=== PATIENT | female | born 1985 | race Caucasian/White ===

== ENCOUNTER → 2016-11-30 | Outpatient (CLI) | payer OTHER | LOC: WI 13:32 | PROVIDERS: ATTEND Nurse Practitioner Family | DX: N64.4 Mastodynia (principal) | CPT/HCPCS: 76641 ==

== ENCOUNTER → 2018-01-10 | Outpatient (CLI) | payer OTHER ==
--- NOTE | 2018-01-10 18:01 | RADIOLOGY REPORT (SQ) ---
EXAM DESCRIPTION: WRIST RIGHT 3 VIEWS COMPLETED DATE/TIME: 01/10/2018 5:35 pm REASON FOR STUDY: Unspecified injury of face, initial encounter; Anesthesia of skin COMPARISON: None. NUMBER OF VIEWS: Three views. TECHNIQUE: AP, lateral, and oblique radiographic images acquired of the right wrist. LIMITATIONS: None. FINDINGS: MINERALIZATION: Normal. BONES: No acute fracture or dislocation. No worrisome bone lesions. Normal alignment. SOFT TISSUES: No soft tissue swelling. No foreign body. OTHER: No other significant finding. IMPRESSION: NEGATIVE STUDY OF THE RIGHT WRIST. NO RADIOGRAPHIC EVIDENCE OF ACUTE INJURY. TECHNICAL DOCUMENTATION: JOB ID: [id number] [employer]- All Rights Reserved Reading location - IP/workstation name: [email or web address]
--- NOTE | 2018-01-10 18:05 | RADIOLOGY REPORT (SQ) ---
EXAM DESCRIPTION: MANDIBLE 4 VIEWS OR MORE COMPLETED DATE/TIME: 01/10/2018 5:35 pm REASON FOR STUDY: Unspecified injury of face, initial encounter; Anesthesia of skin COMPARISON: None. NUMBER OF VIEWS: Four view. TECHNIQUE: Images of the mandible acquired. AP, Tika's, angled right, angled left mandible images. LIMITATIONS: None. FINDINGS: MANDIBLE: No acute fracture. No disruption of the right or left temporomandibular joints. ORBITS: No fracture. No foreign body. SINUSES: No mucosal thickening. No air fluid levels. FACIAL BONES: No fracture. OTHER: No other significant finding. IMPRESSION: NO ACUTE FRACTURE OR MALALIGNMENT. TECHNICAL DOCUMENTATION: JOB ID: [id number] [employer]- All Rights Reserved Reading location - IP/workstation name: [email or web address]
== END ==
LOC: OD 17:04
PROVIDERS: ATTEND Nurse Practitioner Family
DX: S09.93XA Unspecified injury of face, initial encounter (principal); X58.XXXA Exposure to other specified factors, initial encounter; R20.0 Anesthesia of skin; Y93.9 Activity, unspecified; Y92.9 Unspecified place or not applicable
CPT/HCPCS: 70110

== ENCOUNTER 2018-07-02 10:30 | Day surgery (SDC) | payer OTHER ==
[2018-07-02] MEDS ORDERED: PROPOFOL INJ 200 MG/20 ML VIAL IV ONE (13:29)
[2018-07-02] MEDS ORDERED: ONDANSETRON HCL INJ/PF 4 MG/2 ML SDV IV PRN (14:13)
[2018-07-02] MEDS ORDERED: DIPHENHYDRAMINE HCL 50 MG/ML VIAL IV PRN (14:13)
--- NOTE | 2018-07-02 14:34 | Operative Report ---
Operative Report DATE OF SURGERY: 07/02/18 Operative Report: The risks, benefits and alternatives of the procedure including the risk of bleeding, perforation requiring surgery are explained to the patient in detail and informed consent is obtained. Patient was brought back to the operating room and placed in the left, lateral decubital position. Timeout was called. Propofol medications administered. A rectal examination is done which did not reveal any masses, tears or fissures. An Olympus endoscope was introduced into the patient's rectum. The scope was then carefully advanced all the way to the cecum. Intubation of the terminal ileum is done. Prep is good. The scope was then sequentially pulled back via the rest segments of the colon including the ascending colon, hepatic flexure, transverse colon, splenic flexure, descending colon and finally an into the rectosigmoid portions of the colon. Retroflexion maneuver was performed. PREOPERATIVE DIAGNOSIS: Rectal bleeding POSTOPERATIVE DIAGNOSIS: Internal hemorrhoids. Mild terminal ileitis status post biopsy rule out Crohn's disease OPERATION: EGD with biopsy SURGEON: BEN DARBY ANESTHESIA: LMAC TISSUE REMOVED OR ALTERED: As noted above. COMPLICATIONS: None. ESTIMATED BLOOD LOSS: None. INTRAOPERATIVE FINDINGS: As noted above. PROCEDURE: Patient tolerated the procedure well. No immediate postprocedure complications are noted. Patient discharged in good condition. Discharge date 07/02/2018. Discharge diet: Regular. Discharge activity: Regular. 2-3-week follow-up to discuss findings. Patient is instructed to call the office or proceed to the emergency room should there be any further problems or questions. Wait on pathology.
[2018-07-02 15:01] VITALS: BP 91/60
== END 2018-07-02 15:05 | disposition home or self-care (01) ==
LOC: OROUT 10:30
PROVIDERS: ATTEND Internal Medicine Gastroenterology
DX: K52.9 Noninfective gastroenteritis and colitis, unspecified (principal); K64.8 Other hemorrhoids; K62.5 Hemorrhage of anus and rectum; Z79.899 Other long term (current) drug therapy
CPT/HCPCS: 45380; 36415; 84703; 88305 ×2; J2704; 811

== ENCOUNTER → 2018-09-10 | Outpatient (CLI) | payer OTHER ==
--- NOTE | 2018-09-10 12:58 | RADIOLOGY REPORT (SQ) ---
EXAM DESCRIPTION: NM HIDA SCAN WITH CCK COMPLETED DATE/TIME: 09/10/2018 12:24 pm REASON FOR STUDY: RUQ PAIN R10.11 RIGHT UPPER QUADRANT PAIN COMPARISON: None. RADIONUCLIDE AND DOSE: DOSAGE RADIONUCLIDE: 5.34 millicuries Tc99m Mebrofenin. DOSAGE CCK: 1.6 micrograms. DOSAGE MORPHINE: Not required. The route of agent administration: Intravenous TECHNIQUE: Serial imaging right upper quadrant up to 60 minutes following injection of radionuclide. CCK injected after gallbladder visualized. LIMITATIONS: None. FINDINGS: LIVER: Normal visualization without areas of photopenia. INTRAHEPATIC BILE DUCTS: Normal size and no delay in visualization. COMMON BILE DUCT: Normal without dilatation. GALLBLADDER: Normal visualization. Calculated ejection fraction of 13%. Normal range is greater th an 35%. PHYSICAL RESPONSE: Patients presenting complaint was not reproduced. OTHER: No other significant finding. IMPRESSION: No evidence of cystic or common duct obstruction. Diminished gallbladder ejection fraction of 13% suggestive of biliary dyskinesia. TECHNICAL DOCUMENTATION: JOB ID: [id number] [employer]- All Rights Reserved Reading location - IP/workstation name: [email or web address]
== END ==
LOC: RAD 07:47
PROVIDERS: ATTEND Nurse Practitioner Family
DX: R10.11 Right upper quadrant pain (principal)
CPT/HCPCS: 78227; J2805; A9537; Q9969

== ENCOUNTER 2018-11-05 09:21 | Emergency (ER) | payer OTHER ==
--- NOTE | 2018-11-05 09:43 | ER Document Report ---
HPI - HPI Time Seen by Provider: 11/05/18 09:43 Pain Level: 4 Notes: 33-year-old female presents to the ED for complaints of left wrist pain after she was using a drill yesterday at work and her arm got wrapped around it, she states she has had pain with moving her wrist since yesterday. Has not tried any [id number] medications. No open wounds or lacerations. worse with time, elevation does make slightly better. Has not tried any icing or heat. Reports as a child she did break her left ulnar bone but she is not sure exactly where. Patient has an IUD and has a bilateral tubal ligation, [place], states no chance of . Pain is 4 out of 10, throbbing achy. Denies any other area of injury. Denies fevers, chills, chest pain,palpitations, shortness of breath, dyspnea, weakness, bowel or bladder dysfunction, saddle anesthesia, numbness or tingling in bilateral upper or lower extremities equally, muscle paralysis, weakness in bilateral upper or lower extremities equally or rash - REPRODUCTIVE Reproductive: DENIES: : Past Medical History - General Information source: Patient - Social History Smoking Status: Never Smoker Family History: Reviewed & Not Pertinent - Past Medical History Cardiac Medical History: Denies: Hx Coronary Artery Disease, Hx Heart Attack, Hx Hypertension Pulmonary Medical History: Denies: Hx Asthma, Hx Bronchitis, Hx COPD, Hx Pneumonia Neurological Medical History: Denies: Hx Cerebrovascular Accident, Hx Seizures Renal/ Medical History: Denies: Hx Kidney Stones GI Medical History: Denies: Hx Hepatitis, Hx Hiatal Hernia, Hx Ulcer Musculoskeletal Medical History: Denies Hx Arthritis Infectious Medical History: Denies: Hx Hepatitis Past Surgical History: Reports: Hx Section. Denies: Hx Hysterectomy, Hx Mastectomy, Hx Open Heart Surgery, Hx Pacemaker - Immunizations Hx Diphtheria, Pertussis, Tetanus Vaccination: Yes Vertical Provider Document - CONSTITUTIONAL Agree With Documented VS: Yes General Appearance: WD/WN Notes: PHYSICAL EXAMINATION: GENERAL: Well-appearing, well-nourished and in no acute distress. HEAD: Atraumatic, normocephalic. EYES: Pupils equal round and reactive to light, extraocular movements intact, conjunctiva are normal. ENT: Nares patent, oropharynx clear without exudates. Moist mucous membranes. NECK: Normal range of motion, supple without lymphadenopathy LUNGS: Breath sounds clear to auscultation bilaterally and equal. No wheezes rales or rhonchi. HEART: Regular rate and rhythm without murmurs ABDOMEN: Soft, nontender, nondistended abdomen. No guarding, no rebound. No masses appreciated. Female : deferred Musculoskeletal: Normal range of motion, no pitting or edema. No cyanosis. Noted left wrist pain with flexion, extension, inversion, eversion of wrist. digits in right and left with full aprom.. Wooden Box Maker + 2 BUE equally. Snuffbox ten derness positive on left. radial pulses + 2 BUE equally. Negative kanavels sign. No open wounds or drainage from wrist. No vascular compromise.No body crepitus or focal area of TTP. normal ulnar/radial deviation bilaterally and equally . Motor and sensory function of ulnar, radial, medial nerves intact bilaterally and equally. NEUROLOGICAL: Cranial nerves grossly intact. Normal speech, normal gait. Normal sensory, motor exams PSYCH: Normal mood, normal affect. SKIN: Warm, Dry, normal turgor, no rashes or lesions noted. 22-like and then on the other half of a flight - INFECTION CONTROL TRAVEL OUTSIDE OF THE [place] IN LAST 30 DAYS: No Course - Re-evaluation Re-evalutation: 11/05/18 09:51 33-year-old female afebrile vitals stable no distress presents for evaluation of left wrist pain after her hand got twisted in a device yesterday while she was practicing for the [employer] left wrist xray negative for acute fracture dislocation. Advised to follow rice therapy. Wear cockup splint as directed. Consent by patient given to place cock up splint,. cms intact, sensory motor function intact in bilateral upper extremities prior to splint application fiberglass splint placed without incident. cms intact 20 minutes after splint application. Splint is in good alignment. Bilateral upper extremities with motor and sensory function intact 20 minutes after application. Pt stated that splint felt comfortable. Alternate between Tylenol and ibuprofen for pain control. Elevate above level of heart. Follow-up with credit balance specialist within 24-48 hours. If needed follow-up with PCP within 24-48 hours. After performing a Medical Screening Examination, I estimate there is LOW risk for OPEN FRACTURE, COMPARTMENT SYNDROME, DEEP VENOUS THROMBOSIS, ACUTE TENDON RUPTURE, or NEUROVASCULAR INJURY thus I consider the discharge disposition reasonable. I have reevaluated this patient multiple times and no significant life threatening changes are noted. The patient and I have discussed the diagnosis and risks, and we agree with discharging home to closely follow-up with their primary doctor or the referral orthopedist with the understanding that symptoms and presentations can change. We also discussed returning to the Emergency Department immediately if new or worsening symptoms occur. We have discussed the symptoms which are most concerning (e.g., changing or worsening pain, numbness, weakness) that necessitate immediate return 11/05/18 10:54 - Vital Signs Vital signs: Temp Pulse Resp BP Pulse Ox 98.1 F 59 L 16 107/55 L 100 11/05/18 09:33 11/05/18 09:33 11/05/18 09:33 11/05/18 09:33 11/05/18 09:33 Discharge - Discharge Clinical Impression: Left wrist sprain Qualifiers: Encounter type: initial encounter Qualified Code(s): S63.502A - Unspecified sprain of left wrist, initial encounter Condition: Stable Disposition: HOME, SELF-CARE Instructions: Ice & Elevation ([facility]), Ice Packs ([facility]), Wrist Sprain ([facility]) Additional Instructions: SPRAIN: Your injury is a sprain. A sprain results from stretching or tearing of the ligaments, usually from a twisting injury. The ligaments will require time and protection in order to heal properly. Many sprains are quite disabling and should be taken seriously. The usual initial treatment of sprains is cold packs, elevation, and rest of the injured area. Your physician has assessed the seriousness of your lig ament injury, and has outlined a treatment plan. Understand that this treatment may change, depending on how you progress. If a re-examination was recommended, it is important that you follow up as instructed. Call the doctor any time if there is severe pain, numbness, or loss of function in the injured area. QUINCY WRAP: A compression dressing (quincy wrap) has been placed. This helps hold the area still. It limits swelling and internal bleeding. The wrap should be comfortably snug -- not tight. You should feel a sense of pressure, but not severe pain under the wrap. Unless the physician tells you otherwise, you can adjust the wrap for comfort. If the wrap causes symptoms suggesting it's too tight -- uncomfortable pressure, swelling or discoloration beyond the wrap, numbness, or severe pain -- you must loosen the wrap. If these symptoms don't resolve promptly, return for re-evaluation. SPLINT PRECAUTIONS: A splint has been placed. This will protect the area while healing begins. Your problem does NOT normally require a cast. It MUST, however, be held still! Keep the splint on ALL THE TIME until instructed to remove it by the doctor. As you begin to use the area, be careful. You shouldn't do anything which causes discomfort -- you may disturb the injury even with the splint in place. After the initial period of rest and elevation, if splint does not prevent pain when you move, come back. You may require placement of a different splint, or a cast. If there is unexpected severe pain, or numbness, discoloration, or swelling beyond the splint, you should return at once. If you feel that the splint has broken or become loose, come back. ICE & ELEVATION: Apply ice packs frequently against the painful area. Many different schedules are recommended, such as "20 minutes on, 20 minutes off" or "one hour ice, two hours rest." If you need to work, you may need to go longer between ice treatments. You should plan to have the area ice packed AT LEAST one-fourth of the time. The ice should be applied over the wrap, tape, or splint, or over a layer of cloth -- not directly against the skin. Some ice bags have a built-in cloth and can be put directly on the skin. Your injured part should be elevated as much as possible over the next 48 hours. Try to keep the injury above the level of the heart. Avoid use of the injured area. Elevation and rest will decrease the swelling. USE OF AHCC-UKH-BRCKRUA IBUPROFEN: Ibuprofen (Advil, Nuprin, Medipren, Motrin IB) is a medication for fever and pain control. In addition, it has anti- inflammatory effects which may be beneficial, especially in the treatment of injuries. It's best to take ibuprofen with food. Persons with ulcer disease or allergy to aspirin should notify their physician of this before taking ibuprofen. Ibuprofen can be given every four to six hours, for a total of four doses daily. Age Pain or fever dose Antiinflammatory dose 6-8 yr 200 mg (1 tab) 200 mg (1 tab) 9-11 yr 200 mg (1 tab) 200-400 mg (1-2 tab) 11-14 yr 200-400 mg (1-2 tab) 400 mg (2 tab) 15-adult 400 mg (2 tab) 600 mg (3 tab) FOLLOW-UP CARE: If you have been referred to a physician for follow-up care, call the physicians office for an appointment as you were instructed or within the next two days. If you experience worsening or a significant change in your symptoms, notify the physician immediately or return to the Emergency Department at any time for re-evaluation. Prescriptions: Ibuprofen [Ibu] 800 mg PO Q6HP PRN #20 tablet PRN Reason: Forms: Return to Work Referrals: TAMIE BATISTA DO [ACTIVE STAFF] - Follow up in 3-5 days TRISTIAN FRENCH NP [Primary Care Provider] - Follow up in 3-5 days
--- NOTE | 2018-11-05 10:36 | RADIOLOGY REPORT (SQ) ---
EXAM DESCRIPTION: WRIST LEFT 3 VIEWS COMPLETED DATE/TIME: 11/05/2018 10:20 am REASON FOR STUDY: twisted x 1 day ago, hx of L wrist fx as a child COMPARISON: None. NUMBER OF VIEWS: Three views. TECHNIQUE: AP, lateral, and oblique radiographic images acquired of the left wrist. LIMITATIONS: None. FINDINGS: MINERALIZATION: Normal. BONES: No acute fracture or dislocation. No worrisome bone lesions. Normal alignment. SOFT TISSUES: No soft tissue swelling. No foreign body. OTHER: No other significant finding. IMPRESSION: NEGATIVE STUDY OF THE LEFT WRIST. NO RADIOGRAPHIC EVIDENCE OF ACUTE INJURY. TECHNICAL DOCUMENTATION: JOB ID: [id number] [employer]- All Rights Reserved Reading location - IP/workstation name: [email or web address]
[2018-11-05 10:54] VITALS: BP 106/63
== END 2018-11-05 10:52 | disposition home or self-care (01) ==
LOC: ER 09:21
DX: S63.502A Unspecified sprain of left wrist, initial encounter (principal); M25.532 Pain in left wrist; X58.XXXA Exposure to other specified factors, initial encounter; Y99.0 Civilian activity done for income or pay
CPT/HCPCS: 99283; 73110; L3908

== ENCOUNTER 2019-01-28 08:36 | Emergency (ER) | payer OTHER ==
[2019-01-28] MEDS ORDERED: DIPHENHYDRAMINE HCL 50 MG/ML VIAL IV ONE (09:27)
[2019-01-28] MEDS ORDERED: PROCHLORPERAZINE EDISYLATE INJ 10 MG/2 ML VIAL IV ONE (09:27)
--- NOTE | 2019-01-28 09:31 | ER Document Report ---
ED Medical Screen (RME) - General Chief Complaint: Dizziness Stated Complaint: HEADACHE Time Seen by Provider: 01/28/19 09:22 Primary Care Provider: TRISTIAN FRENCH NP [Primary Care Provider] - Follow up as needed TRAVEL OUTSIDE OF THE [place] IN LAST 30 DAYS: No - HPI Notes: 01/28/19 09:28 Patient is a 33-year-old female with a history of anxiety/depression and migraines who presents complaining of bitemporal and frontal headache that is new for her with associated dizziness on occasion. Patient states his headache is been going on for the past week and is described as a sharp pain that has been progressive throughout the days. Patient states that she feels like the pain is on the inside of her head and she cannot reproduce it. Patient states that she is never had any imaging of her head in the past. This is not the worst QIU of her life and does not reach maximal intensity immediately. She is still able to eat and drink without difficultly. She is urinating normally. Denies any fever, head injury, neck pain, changes in vision/speech/mentation/hearing, URI, sore throat, chest pain, palpitations, syncope, cough, shortness of breath, wheeze, dyspnea, abdominal pain, nausea/vomiting/diarrhea, urinary retention, dysuria, hematuria, loss of control of bowel or bladder, numbness/tingling, saddle anesthesia, muscle paralysis/weakness, or rash. I have treated and performed a rapid initial assessment of this patient. A comprehensive ED assessment and evaluation of the patient, analysis of test results and completion of medical decision making process will be conducted by additional ED providers. PHYSICAL EXAMINATION: GENERAL: Well-appearing, well-nourished and in no acute distress. A&Ox4. Answers questions appropriately. HEAD: Atraumatic, normocephalic. Non-tender. EYES: Pupils equal round and reactive to light, extraocular movements intact, sclera anicteric, conjunctiva are normal. No nystagmus. vis kelley intact. ENT: Nares patent and without discharge. oropharynx clear without exudates. No tonsilar hypertrophy or erythema. Moist mucous membranes. NECK: Normal range of motion, supple without lymphadenopathy. No rigidity/meningismus. No midline tenderness. LUNGS: Breath sounds clear to auscultation bilaterally and equal. No wheezes rales or rhonchi. HEART: Regular rate and rhythm without murmurs, rubs, gallops. Musculoskeletal: Ext's b/l: FROM to passive/active. Strength 5+/5. No deficits noted. No bony tenderness of extremities. Extremities: No cyanosis, clubbing, or edema b/l. Peripheral pulses 2+. Capillary refill less than 2 seconds. NEUROLOGICAL: NIH 0. GCS 15. Cranial nerves grossly intact. Normal speech, normal gait. Normal sensory, motor exams. Reflexes 2+ b/l. MANNY's negative. Pronator drift negative. Heel/mitchell, finger/nose wnl. Romberg neg. PSYCH: Normal mood, normal affect. SKIN: Warm, Dry, normal turgor, no rashes or lesions noted. - Related Data Allergies/Adverse Reactions: No Known Allergies Allergy (Verified 01/28/19 08:44) Past Medical History - Social History Chew tobacco use (# tins/day): No Frequency of alcohol use: Occasional Drug Abuse: None - Past Medical History Cardiac Medical History: Denies: Hx Coronary Artery Disease, Hx Heart Attack, Hx Hypertension Pulmonary Medical History: Denies: Hx Asthma, Hx Bronchitis, Hx COPD, Hx Pneumonia Neurological Medical History: Denies: Hx Cerebrovascular Accident, Hx Seizures Renal/ Medical History: Denies: Hx Kidney Stones, Hx Peritoneal Dialysis GI Medical History: Denies: Hx Hepatitis, Hx Hiatal Hernia, Hx Ulcer Musculoskeltal Medical History: Denies Hx Arthritis Psychiatric Medical History: Reports: Hx Depression Infectious Medical History: Denies: Hx Hepatitis Past Surgical History: Reports: Hx Section, Hx Cholecystectomy. Denies: Hx Hysterectomy, Hx Mastectomy, Hx Open Heart Surgery, Hx Pacemaker - Immunizations Hx Diphtheria, Pertussis, Tetanus Vaccination: Yes Physical Exam - Vital signs Vitals: Temp Pulse Resp BP Pulse Ox 98.0 F 50 L 16 115/57 L 99 01/28/19 08:49 01/28/19 08:49 01/28/19 08:49 01/28/19 08:49 01/28/19 08:49 Course - Vital Signs Vital signs: Temp Pulse Resp BP Pulse Ox 98.0 F 50 L 16 115/57 L 99 01/28/19 08:49 01/28/19 08:49 01/28/19 08:49 01/28/19 08:49 06/18/19 08:49 Doctor's Discharge - Discharge Referrals: TRISTIAN FRENCH [employer] MANAGEMENT BIOLOGIST [Primary Care Provider] - Follow up as needed
[2019-01-28 09:56] LABS: ABSOLUTE BASOPHILS # (AUTO) 0.1 10^3/uL (0.0-0.2); ABSOLUTE EOSINOPHILS # (AUTO) 0.2 10^3/uL (0.0-0.6); ABSOLUTE LYMPHOCYTES (AUTO) 1.7 10^3/uL (0.5-4.7); ABSOLUTE MONOCYTES (AUTO) 0.6 10^3/uL (0.1-1.4); EOSINOPHILS % (AUTO) 4.2 % (0-6); HEMATOCRIT 42.5 % (36.0-47.0); HEMOGLOBIN 14.9 g/dL (12.0-15.5); LYMPHOCYTES % (AUTO) 30.4 % (13-45); MEAN CORPUSCULAR HEMOGLOBIN 33.6 pg (27.0-33.4); MEAN CORPUSCULAR HGB CONC 34.9 g/dL (32.0-36.0); MEAN CORPUSCULAR VOLUME 96 fl (80-97); MONOCYTES % (AUTO) 10.6 % (3-13); PLATELET COUNT 210 10^3/uL (150-450); RED BLOOD COUNT 4.42 10^6/uL (3.72-5.28); RED CELL DISTRIBUTION WIDTH 12.7 % (11.5-14.0); SEGMENTED NEUTROPHILS % (AUTO) 53.8 % (42-78); TOTAL CELLS COUNTED % (AUTO) 100 %; WHITE BLOOD COUNT 5.7 10^3/uL (4.0-10.5)
--- NOTE | 2019-01-28 10:12 | RADIOLOGY REPORT (SQ) ---
EXAM DESCRIPTION: CT HEAD WITHOUT COMPLETED DATE/TIME: 01/28/2019 9:56 am REASON FOR STUDY: headache COMPARISON: None. TECHNIQUE: Axial images acquired through the brain without intravenous contrast. Images reviewed wi th bone, brain and subdural windows. Additional sagittal and coronal reconstructions were generated. Images stored on PACS. All CT scanners at this facility use dose modulation, iterative reconstruction, and/or weight based d osing when appropriate to reduce radiation dose to as low as reasonably achievable (ALARA). [facility]: Dose Right [facility]: CareDose [facility]: Dose Right [facility]: Teradose 4D [facility]: Léa et Léo RADIATION DOSE: CT Rad equipment meets quality standard of care and radiation dose reduction techniq ues were employed. CTDIvol: 53.2 mGy. DLP: 1097 mGy-cm. mGy. LIMITATIONS: Artifact from jewelry. FINDINGS: VENTRICLES: Normal size and contour. CEREBRUM: No masses. No hemorrhage. No midline shift. No evidence for acute infarction. Normal gra y/white matter differentiation. No areas of low density in the white matter. CEREBELLUM: No masses. No hemorrhage. No alteration of density. No evidence for acute infarction. EXTRAAXIAL SPACES: No fluid collections. No masses. ORBITS AND GLOBE: No intra- or extraconal masses. Normal contour of globe without masses. CALVARIUM: No fracture. PARANASAL SINUSES: Mild mucosal thickening left maxillary sinus. SOFT TISSUES: No mass or hematoma. OTHER: No other significant finding. IMPRESSION: NORMAL BRAIN CT WITHOUT CONTRAST. EVIDENCE OF ACUTE STROKE: NO. COMMENT: Quality ID # [id number]: Final reports with documentation of one or more dose reduction techniques (e.g., Automated exposure control, adjustment of the mA and/or kV according to patient size, use of iterative reconstruction technique) TECHNICAL DOCUMENTATION: JOB ID: [id number] [employer]- All Rights Reserved Reading location - IP/workstation name: [email or web address]
[2019-01-28 10:14] LABS: ALANINE AMINOTRANSFERASE 20 U/L (9-52); ALBUMIN 4.2 g/dL (3.5-5.0); ALKALINE PHOSPHATASE 45 U/L (38-126); ANION GAP 6 (5-19); ASPARTATE AMINO TRANSFERASE 18 U/L (14-36); BILIRUBIN,DIRECT 0.2 mg/dL (0.0-0.4); BILIRUBIN,TOTAL 1.1 mg/dL (0.2-1.3); BLOOD UREA NITROGEN 14 mg/dL (7-20); CALCIUM 9.4 mg/dL (8.4-10.2); CARBON DIOXIDE 24 mmol/L (22-30); CHLORIDE 109 mmol/L (98-107); GLUCOSE 90 mg/dL (75-110); POTASSIUM 4.5 mmol/L (3.6-5.0); SODIUM 139.1 mmol/L (137-145); TOTAL PROTEIN 6.7 g/dL (6.3-8.2)
--- NOTE | 2019-01-28 11:04 | ER Document Report ---
ED General - General Chief Complaint: Dizziness Stated Complaint: HEADACHE Time Seen by Provider: 01/28/19 09:22 Primary Care Provider: TRISTIAN FRENCH NP [Primary Care Provider] - Follow up in 3-5 days Notes: Patient is a 33 year old female that presents to the emergency department for chief complaint of headache. Patient reports having a headache over the past week she describes as a spasm in the top of her head with associated photophobia and phonophobia. She tried taking [id number] Tylenol without much i mprovement. She denies having any blurred vision, changes in her vision, numbness, weakness or tingling. Denies any fevers, neck stiffness or pain, chest pain, shortness of breath, difficulty breathing. She states she has been stressed out more recently, and mildly anxious. Denies any head injury. She currently states her headache is improved after receiving Compazine and Benadryl, and has a rating of her headache as a 0-10 at this time, at its worst it was a 5 out of 10. Past Medical History: Denies chronic medical conditions Past Surgical History: Cholecystectomy, Social History: Admits to rare alcohol use, denies tobacco or illicit drug use. Family History: Reviewed and noncontributory for presenting illness Allergies: Reviewed, see documented allergy list. REVIEW OF SYSTEMS: Other than noted above, the 12 point review of systems was reviewed with the patient and were negative, all pertinent findings are included in the HPI. PHYSICAL EXAMINATION: Vital signs reviewed, nursing noted reviewed. GENERAL: Well-appearing, well-nourished and in no acute distress. HEAD: Atraumatic, normocephalic. EYES: Eyes appear normal, extraocular movements intact, sclera anicteric, conjunctiva are normal. ENT: nares patent, oropharynx clear without exudates. Moist mucous membranes. No sinus tenderness NECK: Normal range of motion, supple without lymphadenopathy signs of meningismus LUNGS: Breath sounds clear to auscultation bilaterally and equal. No wheezes rales or rhonchi. HEART: Regular rate and rhythm without murmurs ABDOMEN: Soft, nontender, normoactive bowel sounds. No rebound, guarding, or rigidity. No masses appreciated. EXTREMITIES: Nontender, good range of motion, no pitting or edema. NEUROLOGICAL: No focal neurological deficits. Moves all extremities spontaneously Motor and sensory grossly intact on exam. PSYCH: Normal mood, normal affect. SKIN: Warm, Dry, normal turgor, no rashes or lesions noted on exposed skin TRAVEL OUTSIDE OF THE [place] IN LAST 30 DAYS: No - Related Data Allergies/Adverse Reactions: No Known Allergies Allergy (Verified 01/28/19 08:44) Past Medical History - Social History Smoking Status: Never Smoker Chew tobacco use (# tins/day): No Frequency of alcohol use: Occasional Drug Abuse: None Family History: Reviewed & Not Pertinent Patient has suicidal ideation: No Patient has homicidal ideation: No - Past Medical History Cardiac Medical History: Denies: Hx Coronary Artery Disease, Hx Heart Attack, Hx Hypertension Pulmonary Medical History: Denies: Hx Asthma, Hx Bronchitis, Hx COPD, Hx Pneumonia Neurological Medical History: Denies: Hx Cerebrovascular Accident, Hx Seizures Renal/ Medical History: Denies: Hx Kidney Stones, Hx Peritoneal Dialysis GI Medical History: Denies: Hx Hepatitis, Hx Hiatal Hernia, Hx Ulcer Musculoskeletal Medical History: Denies Hx Arthritis Psychiatric Medical History: Reports: Hx Depression - anxiety Infectious Medical History: Denies: Hx Hepatitis Past Surgical History: Reports: Hx Section, Hx Cholecystectomy, Hx Orthopedic Surgery, Hx Tonsillectomy. Denies: Hx Hysterectomy, Hx Mastectomy, Hx Open Heart Surgery, Hx Pacemaker - Immunizations Hx Diphtheria, Pertussis, Tetanus Vaccination: Yes Physical Exam - Vital signs Vitals: Temp Pulse Resp BP Pulse Ox 98.0 F 50 L 16 115/57 L 99 01/28/19 08:49 01/28/19 08:49 01/28/19 08:49 01/28/19 08:49 01/28/19 08:49 Course - Re-evaluation Re-evalutation: Patient seen and examined vital signs reviewed. Patient was evaluated and treated as appropriate for the patient's presenting symptoms and complaint, with consideration of any critical or life threatening conditions that may be associated with their obtained history and exam as noted above. Patient was treated with Compazine, and Benadryl ordered in triage The patient was re-evaluated and was stable, blood work that was ordered was unremarkable and negative. CT of the head was ordered in triage, was negative, I have low suspicion that this patient has concern for acute intracranial causes of headache, as it is been gradual in onset, not severe, and essentially is resolved at this time. Evaluation was most consistent with headache, patient given a short prescription for Fioricet to take if her headache returns, advised to follow-up with primary care. Plan of care was discussed with the patient at this point, after careful consideration I feel that that patient can be discharged from the emergency department, the patient was educated treatments and reasons to return to the emergency department based on their presumed diagnosis as noted above, they were advised to followup with a primary care physician in 2-3 days. Patient was agreeable to plan of care. *Note is created using voice recognition software and may contain spelling, syntax or grammatical errors. Laboratory 01/28/19 01/28/19 01/28/19 09:42 09:42 09:42 WBC 5.7 RBC 4.42 Hgb 14.9 Hct 42.5 MCV 96 MCH 33.6 H MCHC 34.9 RDW 12.7 Plt Count 210 Seg Neutrophils % 53.8 Lymphocytes % 30.4 Monocytes % 10.6 Eosinophils % 4.2 Basophils % 1.0 Absolute Neutrophils 3.0 Absolute Lymphocytes 1.7 Absolute Monocytes 0.6 Absolute Eosinophils 0.2 Absolute Basophils 0.1 Sodium 139.1 Potassium 4.5 Chloride 109 H Carbon Dioxide 24 Anion Gap 6 BUN 14 Creatinine 0.76 Est GFR ( Amer) > 60 Est GFR (Non-Af Amer) > 60 Glucose 90 Calcium 9.4 Total Bilirubin 1.1 Direct Bilirubin 0.2 Neonat Total Bilirubin Not Reportable Neonat Direct Bilirubin Not Reportable Neonat Indirect Bili Not Reportable AST 18 ALT 20 Alkaline Phosphatase 45 Total Protein 6.7 Albumin 4.2 Serum HCG, Qual NEGATIVE Head CT 01/28/19 09:27 IMPRESSION: NORMAL BRAIN CT WITHOUT CONTRAST. EVIDENCE OF ACUTE STROKE: NO. - Vital Signs Vital signs: Temp Pulse Resp BP Pulse Ox 98.0 F 56 L 16 108/55 L 100 01/28/19 11:28 01/28/19 11:28 01/28/19 11:28 01/28/19 11:28 01/28/19 11:28 - Laboratory Result Diagrams: 01/28/19 09:42 01/28/19 09:42 Laboratory results interpreted by me: 01/28/19 01/28/19 09:42 09:42 MCH 33.6 H Chloride 109 H Discharge - Discharge Clinical Impression: Headache Qualifiers: Headache type: unspecified Headache chronicity pattern: unspecified pattern Intractability: not intractable Qualified Code(s): R51 - Headache Condition: Stable Disposition: HOME, SELF-CARE Instructions: Headache ([facility]) Additional Instructions: Please take the prescribed headache medication as written and recommended, if you develop numbness, weakness or tingling, vomiting, or worsening symptoms, do not hesitate to return to the emergency department. Prescriptions: Butalb/Acetaminophen/Caffeine [Fioricet (50-325-40 mg) Tablet] 1 tab PO Q6H PRN #12 tab PRN Reason: headache Referrals: TRISTIAN FRENCH, [employer] C[employer]TER [Primary Care Provider] - Follow up in 3-5 days
[2019-01-28 11:31] VITALS: BP 108/55
== END 2019-01-28 11:31 | disposition home or self-care (01) ==
LOC: ER 08:36
DX: R51 Headache (principal); R42 Dizziness and giddiness; Z90.49 Acquired absence of other specified parts of digestive tract
CPT/HCPCS: 99284; 96374; 96375; 36415; 84703; 85025; 80053; 70450; J1200; J0780

== ENCOUNTER 2019-10-04 18:41 | Emergency (ER) | payer OTHER ==
[2019-10-04] MEDS ORDERED: ONDANSETRON HCL INJ/PF 4 MG/2 ML SDV IV ONE (19:07)
[2019-10-04] MEDS ORDERED: MORPHINE SULFATE 10 MG/ML INJ IV ONE ×2 (19:07→22:24)
--- NOTE | 2019-10-04 19:09 | ER Document Report ---
ED Medical Screen (RME) - General Chief Complaint: Flank Pain Stated Complaint: LEFT FLANK PAIN Time Seen by Provider: 10/04/19 19:05 Primary Care Provider: TRISTIAN FRENCH NP [Primary Care Provider] - Follow up as needed Mode of Arrival: Ambulatory Information source: Patient Notes: Patient is a 34-year-old female with no significant past medical history presenting to the emergency department chief complaint of sudden onset left lower quadrant abdominal pain that started about 3 hours prior to arrival. Patient reports she felt fine prior to that. She states that it is a sharp stabbing pain, reports nausea, denies vomiting, diarrhea or fever. Patient is doubled over in pain in triage. She does report history of 3 C-sections and a cholecystectomy. I have greeted and performed a rapid initial assessment of this patient. A comprehensive ED assessment and evaluation of the patient, analysis of test results and completion of the medical decision making process will be conducted by additional ED providers. I have specifically instructed the patient or family members with the patient to immediately return to any nursing staff should anything change in the patient's condition or with their chief complaint. TRAVEL OUTSIDE OF THE [place] IN LAST 30 DAYS: No - Related Data Allergies/Adverse Reactions: No Known Allergies Allergy (Verified 01/28/19 08:44) Past Medical History - Past Medical History Cardiac Medical History: Denies: Hx Coronary Artery Disease, Hx Heart Attack, Hx Hypertension Pulmonary Medical History: Denies: Hx Asthma, Hx Bronchitis, Hx COPD, Hx Pneumonia Neurological Medical History: Denies: Hx Cerebrovascular Accident, Hx Seizures Renal/ Medical History: Denies: Hx Kidney Stones, Hx Peritoneal Dialysis GI Medical History: Denies: Hx Hepatitis, Hx Hiatal Hernia, Hx Ulcer Musculoskeltal Medical History: Denies Hx Arthritis Psychiatric Medical History: Reports: Hx Depression - anxiety Infectious Medical History: Denies: Hx Hepatitis Past Surgical History: Reports: Hx Section, Hx Cholecystectomy, Hx Orthopedic Surgery, Hx Tonsillectomy. Denies: Hx Hysterectomy, Hx Mastectomy, Hx Open Heart Surgery, Hx Pacemaker - Immunizations Hx Diphtheria, Pertussis, Tetanus Vaccination: Yes Physical Exam - Vital signs Vitals: Temp Pulse Resp BP Pulse Ox 98.2 F 57 L 16 99/48 L 100 10/04/19 18:56 10/04/19 18:56 10/04/19 18:56 10/04/19 18:56 10/04/19 18:56 Course - Vital Signs Vital signs: Temp Pulse Resp BP Pulse Ox 98.2 F 57 L 16 99/48 L 100 10/04/19 18:56 10/04/19 18:56 10/04/19 18:56 10/04/19 18:56 10/04/19 18:56 Doctor's Discharge - Discharge Referrals: TRISTIAN FRENCH, STEAMB[employer]ER [Primary Care Provider] - Follow up as needed
[2019-10-04 19:59] LABS: ABSOLUTE EOSINOPHILS # (AUTO) 0.3 10^3/uL (0.0-0.6); ABSOLUTE MONOCYTES (AUTO) 0.7 10^3/uL (0.1-1.4); ABSOLUTE NEUT (AUTO) 4.4 10^3/uL (1.7-8.2); BASOPHILS % (AUTO) 0.5 % (0-2); EOSINOPHILS % (AUTO) 3.3 % (0-6); HEMATOCRIT 41.3 % (36.0-47.0); HEMOGLOBIN 14.6 g/dL (12.0-15.5); LYMPHOCYTES % (AUTO) 35.7 % (13-45); MEAN CORPUSCULAR HEMOGLOBIN 34.3 pg (27.0-33.4); MEAN CORPUSCULAR HGB CONC 35.4 g/dL (32.0-36.0); MEAN CORPUSCULAR VOLUME 97 fl (80-97); PLATELET COUNT 252 10^3/uL (150-450); RED BLOOD COUNT 4.26 10^6/uL (3.72-5.28); RED CELL DISTRIBUTION WIDTH 13.1 % (11.5-14.0); SEGMENTED NEUTROPHILS % (AUTO) 52.5 % (42-78); TOTAL CELLS COUNTED % (AUTO) 100 %; WHITE BLOOD COUNT 8.4 10^3/uL (4.0-10.5)
[2019-10-04 20:16] LABS: ALBUMIN 4.5 g/dL (3.5-5.0); ALKALINE PHOSPHATASE 58 U/L (38-126); ANION GAP 10 (5-19); ASPARTATE AMINO TRANSFERASE 26 U/L (14-36); BILIRUBIN,DIRECT 0.2 mg/dL (0.0-0.4); BILIRUBIN,TOTAL 0.9 mg/dL (0.2-1.3); BLOOD UREA NITROGEN 16 mg/dL (7-20); CALCIUM 9.9 mg/dL (8.4-10.2); CARBON DIOXIDE 22 mmol/L (22-30); CHLORIDE 105 mmol/L (98-107); GLUCOSE 79 mg/dL (75-110); POTASSIUM 4.2 mmol/L (3.6-5.0); TOTAL PROTEIN 7.5 g/dL (6.3-8.2)
[2019-10-04 20:53] LABS: APPEARANCE,URINE SLIGHTLY-CLOUDY; BILIRUBIN,URINE NEGATIVE (NEGATIVE); COLOR,URINE YELLOW; GLUCOSE, URINE NEGATIVE (NEGATIVE); KETONES,URINE 20 mg/dL (NEGATIVE); LEUKOCYTE ESTERASE,URINE NEGATIVE (NEGATIVE); NITRITE,URINE NEGATIVE (NEGATIVE); PROTEIN,URINE NEGATIVE (NEGATIVE); URINE SPECIFIC GRAVITY 1.026; UROBILINOGEN,URINE NEGATIVE mg/dL (<2.0)
--- NOTE | 2019-10-04 20:59 | RADIOLOGY REPORT (SQ) ---
EXAM DESCRIPTION: US PELVIS TRANSVAGINAL COMPLETED DATE/TME: 10/04/2019 19:07 CLINICAL HISTORY: 34 years, Female, severe LLQ pain sudden onset Findings: Uterus is anteverted and measures 8.8 x 4.4 x 5.0 cm. No abnormal uterine masses. Endometrium measures 3 to 4 mm. Cervix is closed, measuring 3.1 cm. Right ovary is not visualized due to shadowing. Left ovary measures 3.4 x 2.4 x 1.7 cm. No abnormal ovarian or adnexal masses. Vascular flow preserved within the left ovary on color and spectral Doppler imaging. IMPRESSION: No evidence for left ovarian torsion or abnormal adnexal masses.
--- NOTE | 2019-10-04 22:39 | ER Document Report ---
ED General - General Chief Complaint: Abdominal Pain Stated Complaint: LEFT FLANK PAIN Time Seen by Provider: 10/04/19 19:05 Primary Care Provider: TRISTIAN FRENCH NP [Primary Care Provider] - Follow up as needed Mode of Arrival: Ambulatory Notes: 34-year-old female presents emergency department complaining of sudden onset of left lower abdominal pain that is sharp and was intermittent for approximately an hour, then became constant and lasted for a while after that, states that it tapered off and had only a small amount of pain during the ultrasound but the pain has since returned. Denies any dysuria, frequency, vaginal discharge, flank pain, vomiting or diarrhea. TRAVEL OUTSIDE OF THE [place] IN LAST 30 DAYS: No - Related Data Allergies/Adverse Reactions: No Known Allergies Allergy (Verified 01/28/19 08:44) Home Medications: Ativan, Eszopiclone, Fluvoxamine Past Medical History - General Information source: Patient - Social History Smoking Status: Never Smoker Frequency of alcohol use: None Drug Abuse: None Family History: Reviewed & Not Pertinent Patient has suicidal ideation: No Patient has homicidal ideation: No - Past Medical History Cardiac Medical History: Denies: Hx Coronary Artery Disease, Hx Heart Attack, Hx Hypertension Pulmonary Medical History: Denies: Hx Asthma, Hx Bronchitis, Hx COPD, Hx Pneumonia Neurological Medical History: Denies: Hx Cerebrovascular Accident, Hx Seizures Renal/ Medical History: Denies: Hx Kidney Stones, Hx Peritoneal Dialysis GI Medical History: Denies: Hx Hepatitis, Hx Hiatal Hernia, Hx Ulcer Musculoskeletal Medical History: Denies Hx Arthritis Psychiatric Medical History: Reports: Hx Depression - anxiety Infectious Medical History: Denies: Hx Hepatitis Past Surgical History: Reports: Hx Section, Hx Cholecystectomy, Hx Orthopedic Surgery, Hx Tonsillectomy. Denies: Hx Hysterectomy, Hx Mastectomy, Hx Open Heart Surgery, Hx Pacemaker - Immunizations Hx Diphtheria, Pertussis, Tetanus Vaccination: Yes Review of Systems - Review of Systems Constitutional: No symptoms reported Gastrointestinal: See HPI, Abdominal pain Genitourinary: No symptoms reported -: Yes All other systems reviewed and negative Physical Exam - Vital signs Vitals: Temp Pulse Resp BP Pulse Ox 98.2 F 57 L 16 99/48 L 100 10/04/19 18:56 10/04/19 18:56 10/04/19 18:56 10/04/19 18:56 10/04/19 18:56 Interpretation: Normal - Notes Notes: GENERAL: Alert, interacts well. No acute distress. HEAD: Normocephalic, atraumatic EYES: Pupils equal, round and reactive to light, extraocular movements intact. ENT: Oral mucosa moist, tongue midline. NECK: Full range of motion, supple, trachea midline. LUNGS: Clear to auscultation bilaterally, no wheezes, rales or rhonchi, no respiratory distress. HEART: Regular rate and rhythm, no murmurs, gallops, rubs. ABDOMEN: Soft, lower quadrant tenderness to palpation, no guarding, no rigidity, no rebounding, nondistended, bowel sounds present in all 4 quadrants. EXTREMITIES: Moves all 4 extremities spontaneously, no edema, radial and dorsalis pedis pulses 2/4 bilaterally. No cyanosis. NEUROLOGICAL: Alert and oriented x3, normal speech. PSYCH: Normal mood, normal affect. SKIN: Warm, Dry, normal turgor, no rashes or lesions noted. Course - Re-evaluation Re-evalutation: 10/04/19 22:39 CBC unremarkable, CMP shows slight low sodium 136.7, urinalysis shows small blood and small ketones but only 1 RBC. Doubt kidney stone. test is negative. No evidence of torsion on ultrasound. There is no cyst on ultrasound, given the fact that the patient's pain is now coming back I find it unlikely that this is a ruptured ovarian cyst. Right ovary was not identified. Given the degree of pain patient is still having on physical exam I will order a CAT scan of her abdomen pelvis. 10/05/19 01:20 CT scan of the abdomen pelvis is also completely negative. Discussed with patient that I do not know what is causing her pain. Appendix was not identified but I find it doubtful that it with a normal white blood cell count a nd no fever that it is causing pain all the way on the left-hand side of her body. Discussed with patient that I would recommend taking Azo in case I am missing a urinary source, MiraLAX in case any of this is coming from constipation and return for fever, vomiting, worsening pain or any new or con cerning symptoms. Patient is agreeable to this plan. Will be discharged to home. - Vital Signs Vital signs: Temp Pulse Resp BP Pulse Ox 98.1 F 78 20 103/53 L 100 10/04/19 21:14 10/04/19 21:14 10/04/19 21:14 10/04/19 21:14 10/04/19 21:14 - Laboratory Result Diagrams: 10/04/19 19:30 10/04/19 19:30 Laboratory results interpreted by me: 10/04/19 10/04/19 10/04/19 19:30 19:30 19:30 MCH 34.3 H Sodium 136.7 L Urine Ketones 20 H Urine Blood SMALL H Discharge - Discharge Clinical Impression: Left lower quadrant abdominal pain Condition: Stable Disposition: HOME, SELF-CARE Additional Instructions: Today your test was negative, your CAT scan did not show any signs of infection, your ultrasound did not show any signs of ovarian torsion's or ovarian cysts. You did not have a fever and your white blood cell count was normal. I would like you to take Pyridium also known as Azo as directed [id number] to see if it decreases your pain. If it decreases your pain please continue taking it. If it does not change her pain after 2 doses then you may stop. I would also like you to try taking MiraLAX in case any of this comes from hard stools or constipation. Please dissolve 1 scoop of MiraLAX in a glass of water once a day to treat constipation. You may increase to twice a day if needed to create soft bowel movements and you may decrease to every other day if you develop diarrhea. If you develop a fever, worsening pain, vomiting or any new or concerning symptoms please return to the emergency department for recheck. Referrals: TRISTIAN FRENCH, [employer] TILE DECORATOR [Primary Care Provider] - Follow up as needed
--- NOTE | 2019-10-04 23:53 | RADIOLOGY REPORT (SQ) ---
EXAM DESCRIPTION: CT ABDOMEN PELVIS WITH IV CONTRAST COMPLETED DATE/TME: 10/04/2019 22:24 CLINICAL HISTORY: LLQ intermittent stabbing pain COMPARISON: 06/01/2014 TECHNIQUE: CT of the abdomen and pelvis performed following IV administration of 86 mL of Omnipaque 350. FINDINGS: Lung Bases: The visualized lung bases are clear. Bones: No destructive bone lesions identified. Abdomen: Liver: The liver has normal size and density. No intrahepatic mass or biliary dilatation. Gallbladder: Prior cholecystectomy. Spleen, Pancreas, and Adrenal Glands: The spleen, pancreas, and adrenal glands are unremarkable. Kidneys: The kidneys have normal size without evidence of solid mass or hydronephrosis. Vasculature: The aorta and IVC have normal caliber and position. The portal vein is patent. The proximal visceral and renal arteries are patent. Stomach: The stomach and duodenum have normal course. Other: No free intraperitoneal air. No free fluid or lymphadenopathy. Pelvis: Bladder: Urinary bladder is unremarkable. Bowel: No dilated loops of large or small bowel. Appendix: Not identified. Pelvis: Uterus is nonenlarged. IMPRESSION: 1. No acute inflammatory or obstructive process identified. This exam was performed according to our departmental dose-optimization program, which includes automated exposure control, adjustment of the mA and/or kV according to patient size and/or use of iterative reconstruction technique. Automated exposure control, adjustment of the mA and/or kV according to patient size, use of iterative reconstruction technique) copyright 2011 [employer]- All Rights Reserved
[2019-10-05] MEDS ORDERED: PHENAZOPYRIDINE HCL 200 MG TABLET PO ONE (01:21)
[2019-10-05 01:42] VITALS: BP 101/56
== END 2019-10-05 01:42 | disposition home or self-care (01) ==
LOC: ER 18:41
DX: R10.32 Left lower quadrant pain (principal); Z79.899 Other long term (current) drug therapy
CPT/HCPCS: 96376; 99284; 96374; 96375; 36415; 85025; 81025; 80053; 81001; 76830; 93976; 74177; J2270; J3490; J2405